=== PATIENT | female | born 1990 | race Caucasian/White ===

== ENCOUNTER 2017-09-27 20:43 | Emergency (ER) | payer OTHER, BC ==
[2017-09-27] MEDS ORDERED: TYLENOL EXTRA STRENGTH 500 MG PO STA (21:07)
--- NOTE | 2017-09-27 21:10 | ERPHSYRPT ---
- History of Present Illness Time Seen by Provider: 09/27/17 21:00 Source: patient Exam Limitations: no limitations Patient Subjective Stated Complaint: pt is alert and oriented. pt is ambulatory. pt is 9 weeks 5 days . pt is . pt states that at about 1930 she began bleeding bright red blood with no clots passing. pt states that she is also experiencing cramping. she states that she has been down a water slide today with her children and that she had sex today at about 1700. Triage Nursing Assessment: see above Physician History: 26 y/o female who is 9 weeks comes to the ER with complaints of vaginal bleeding and abdominal cramping that started this evening. Pt states that at 5 pm she had sexual intercourse. Pt states that she had bright red blood but no clots. Pt describes the pain as cramping, 6/10, constant, worse with walking and pt has not taken any pain meds. Pt also admits to pressure with urination. Timing/Duration: today Activites at Onset: physical activity Quality: cramping Onset Location: suprapubic Pain Radiation: none Severity of Pain-Max: moderate Severity of Pain-Current: moderate Prior abdominal problems: similar symptoms Sexual intercourse history: single partner Modifying Factors: Improves With: nothing Associated Symptoms: denies symptoms Allergies/Adverse Reactions: sulfamethoxazole [From Bactrim] Allergy (Severe, Verified 02/23/16 22:44) Shortness of Breath and hives trimethoprim [From Bactrim] Allergy (Severe, Verified 02/23/16 22:44) Shortness of Breath and hives adhesive Allergy (Mild, Verified 02/23/16 22:44) Rash latex Allergy (Unknown, Verified 02/23/16 22:44) Home Medications: Vits W-Ca,Fe,FA(<1Mg) [] 1 tab PO DAILY 02/23/16 [History] Hx Tetanus, Diphtheria Vaccination/Date Given: Yes Hx Influenza Vaccination/Date Given: No Hx Pneumococcal Vaccination/Date Given: No - Review of Systems Constitutional: No Fever, No Chills Eyes: No Symptoms Ears, Nose, & Throat: No Symptoms Respiratory: No Cough, No Dyspnea Cardiac: No Chest Pain, No Edema, No Syncope Abdominal/Gastrointestinal: Abdominal Pain, No Nausea, No Vomiting, No Diarrhea Genitourinary Symptoms: Vaginal Bleeding, No Dysuria Musculoskeletal: No Back Pain, No Neck Pain Skin: No Rash Neurological: No Dizziness, No Focal Weakness, No Sensory Changes Psychological: No Symptoms Endocrine: No Symptoms All Other Systems: Reviewed and Negative - Past Medical History Pertinent Past Medical History: Yes Neurological History: No Pertinent History ENT History: No Pertinent History Cardiac History: No Pertinent History Respiratory History: Asthma Endocrine Medical History: No Pertinent History Musculoskeletal History: No Pertinent History GI Medical History: No Pertinent History History: No Pertinent History Psycho-Social History: Anxiety Female Reproductive Disorders: No Pertinent History Other Medical History: CHLAMYDIA IN THE PAST ET TRICHOMONIS. INDIGESTION - Past Surgical History Past Surgical History: Yes Neuro Surgical History: No Pertinent History Cardiac: No Pertinent History Respiratory: No Pertinent History Gastrointestinal: No Pertinent History Genitourinary: No Pertinent History Musculoskeletal: No Pertinent History Female Surgical History: No Pertinent History Other Surgical History: wisdom teeth removed, abd abcess - Social History Smoking Status: Former smoker How long have you smoked: 4 -5 years Exposure to second hand smoke: No Drug Use: none Patient Lives Alone: No Significant Family History: no pertinent family hx - Female History Hx Now: Yes Expected Date of Delivery: 04/27/18 - Nursing Vital Signs Nursing Vital Signs: Initial Vital Signs Temperature 97.6 F 09/27/17 20:44 Pulse Rate 95 H 09/27/17 20:44 Respiratory Rate 16 09/27/17 20:44 Blood Pressure 124/82 09/27/17 20:44 O2 Sat by Pulse Oximetry 99 09/27/17 20:44 Pain Scale Pain Intensity 3 - Physical Exam General Appearance: no apparent distress, alert Eye Exam: PERRL/EOMI, eyes nml inspection Ears, Nose, Throat Exam: normal ENT inspection, TMs normal, pharynx normal, moist mucous membranes Neck Exam: normal inspection, non-tender, supple, full range of motion Respiratory Exam: normal breath sounds, lungs clear, No respiratory distress Cardiovascular Exam: regular rate/rhythm, normal heart sounds, normal peripheral pulses Gastrointestinal/Abdomen Exam: soft, normal bowel sounds, distention, No tenderness, No mass Back Exam: normal inspection, normal range of motion, No CVA tenderness, No vertebral tenderness Extremity Exam: normal inspection, normal range of motion, pelvis stable Neurologic Exam: alert, oriented x 3, cooperative, nremt II-XII nml as tested, normal mood/affect, sensation nml, No motor deficits Skin Exam: normal color, warm, dry Lymphatic Exam: No adenopathy SpO2: 99 Oxygen Delivery: Room Air - Course Nursing assessment & vital signs reviewed: Yes Ordered Tests: Active Orders 24 hr Category Date Time Status OB <14 WKS 1ST GESTATION [US] Stat Exams 09/27/17 21:06 Ordered CBC W DIFF Stat Lab 09/27/17 21:05 Completed CMP Stat Lab 09/27/17 21:05 Completed CULTURE,URINE Stat Lab 09/27/17 22:25 Received HCG, Quantitative (Inhouse) Stat Lab 09/27/17 21:30 Completed UA W/ MICROSCOPIC Stat Lab 09/27/17 22:25 Completed Medication Summary Discontinued Medications Generic Name Dose Route Start Last Admin Trade Name Brandy PRN Reason Stop Dose Admin Acetaminophen 1,000 mg 09/27/17 21:07 09/27/17 21:11 Tylenol Extra Strength 500 Mg PO 09/27/17 21:08 1,000 mg STAT STA Administration Acetaminophen Confirm 09/27/17 21:11 Tylenol Extra Strength 500 Mg Administered 09/27/17 21:12 Dose 1,000 mg .ROUTE .[employer] Lab/Rad Data: Laboratory Result Diagrams 09/27/17 21:05 09/27/17 21:05 Laboratory Results 09/27/17 09/27/17 09/27/17 Range/Units 22:25 21:30 21:05 WBC (4.0-10.5) K/mm3 RBC (4.1-5.4) M/mm3 Hgb (12.0-16.0) gm/dl Hct (35-47) % MCV (78-100) fl MCH (26-32) pg MCHC (32-36) g/dl RDW (11.5-14.0) % Plt Count (150-450) K/mm3 MPV (6-9.5) fl Gran % (36.0-66.0) % Eos # (Auto) (0-0.5) Absolute Lymphs (auto) (1.0-4.6) Absolute Monos (auto) (0.0-1.3) Lymphocytes % (24.0-44.0) % Monocytes % (0.0-12.0) % Eosinophils % (0.00-5.0) % Basophils % (0.0-0.4) % Absolute Granulocytes (1.4-6.9) Basophils # (0-0.4) Sodium 137 (137-145) mmol/L Potassium 3.5 (3.5-5.1) mmol/L Chloride 103 (98-107) mmol/L Carbon Dioxide 25 (22-30) mmol/L Anion Gap 12.7 (5-15) MEQ/L BUN 9 (7-17) mg/dL Creatinine 0.64 (0.52-1.04) mg/dL Estimated GFR > 60.0 ML/MIN Glucose 91 (74-106) mg/dL Calcium 9.1 (8.4-10.2) mg/dL Total Bilirubin 0.30 (0.2-1.3) mg/dL AST 14 (14-36) U/L ALT 11 (0-35) U/L Alkaline Phosphatase 65 (38-126) U/L Serum Total Protein 6.5 (6.3-8.2) g/dL Albumin 3.9 (3.5-5.0) g/dL Beta HCG, Quant 71070 mIU/ml Ur Collection Type VOID Urine Color RED (YELLOW) Urine Appearance CLOUDY (CLEAR) Urine pH 8.0 (5-6) Ur Specific [place] 1.005 (1.005-1.025) Urine Protein 30 (Negative) Urine Ketones NEGATIVE (NEGATIVE) Urine Blood 250 (0-5) Vahe/ul Urine Nitrite NEGATIVE (NEGATIVE) Urine Bilirubin NEGATIVE (NEGATIVE) Urine Urobilinogen NORMAL (0-1) mg/dL Ur Leukocyte Esterase TRACE (NEGATIVE) Urine Microscopic RBC >100 (0-2) /HPF Urine Culture Reflexed YES (NO) Urine Glucose NEGATIVE (NEGATIVE) mg/dL Specimen Received 6 09/2709/27/17 Range/Units 21:05 WBC 9.3 (4.0-10.5) K/mm3 RBC 4.51 (4.1-5.4) M/mm3 Hgb 13.3 (12.0-16.0) gm/dl Hct 38.3 (35-47) % MCV 84.9 (78-100) fl MCH 29.5 (26-32) pg MCHC 34.7 (32-36) g/dl RDW 12.8 (11.5-14.0) % Plt Count 281 (150-450) K/mm3 MPV 10.8 H (6-9.5) fl Gran % 57.5 (36.0-66.0) % Eos # (Auto) 0.26 (0-0.5) Absolute Lymphs (auto) 2.82 (1.0-4.6) Absolute Monos (auto) 0.84 (0.0-1.3) Lymphocytes % 30.4 (24.0-44.0) % Monocytes % 9.1 (0.0-12.0) % Eosinophils % 2.8 (0.00-5.0) % Basophils % 0.2 (0.0-0.4) % Absolute Granulocytes 5.34 (1.4-6.9) Basophils # 0.02 (0-0.4) Sodium (137-145) mmol/L Potassium (3.5-5.1) mmol/L Chloride (98-107) mmol/L Carbon Dioxide (22-30) mmol/L Anion Gap (5-15) MEQ/L BUN (7-17) mg/dL Creatinine (0.52-1.04) mg/dL Estimated GFR ML/MIN Glucose (74-106) mg/dL Calcium (8.4-10.2) mg/dL Total Bilirubin (0.2-1.3) mg/dL AST (14-36) U/L ALT (0-35) U/L Alkaline Phosphatase (38-126) U/L Serum Total Protein (6.3-8.2) g/dL Albumin (3.5-5.0) g/dL Beta HCG, Quant mIU/ml Ur Collection Type Urine Color (YELLOW) Urine Appearance (CLEAR) Urine pH (5-6) Ur Specific [place] (1.005-1.025) Urine Protein (Negative) Urine Ketones (NEGATIVE) Urine Blood (0-5) Vahe/ul Urine Nitrite (NEGATIVE) Urine Bilirubin (NEGATIVE) Urine Urobilinogen (0-1) mg/dL Ur Leukocyte Esterase (NEGATIVE) Urine Microscopic RBC (0-2) /HPF Urine Culture Reflexed (NO) Urine Glucose (NEGATIVE) mg/dL Specimen Received - Progress Progress: improved Progress Note: 09/27/17 23:51 The OB ultrasound shows a subchorionic hemorrhage. The fetus has a FHR in the 160's. The rest of the labs are within normal limits. Pt was advised to start pelvic rest and will F/U with Dr Johnson on Saturday. - Departure Time of Disposition: 23:52 Departure Disposition: Home Clinical Impression: Subchorionic hemorrhage Qualifiers: Fetus number: single or unspecified fetus Trimester: first trimester Qualified Code(s): O41.8X10 - Other specified disorders of amniotic fluid and membranes, first trimester, not applicable or unspecified; O46.8X1 - Other antepartum hemorrhage, first trimester Condition: Stable Critical Care Time: No Referrals: RANI JOHNSON MD [Primary Care Provider] - Instructions: Bleeding With (DC) Additional Instructions: No sexual intercourse until you talk with your OB doctor. Follow up with Dr Johnson on Saturday.
[2017-09-27] MEDS ORDERED: TYLENOL EXTRA STRENGTH 500 MG ONE (21:11)
[2017-09-27 21:49] LABS: ALBUMIN 3.9 g/dL (3.5-5.0); ALKALINE PHOSPHATASE 65 U/L (38-126); ANION GAP 12.7 MEQ/L (5-15); BLOOD UREA NITROGEN 9 mg/dL (7-17); CHLORIDE 103 mmol/L (98-107); Calcium 9.1 mg/dL (8.4-10.2); Carbon Dioxide 25 mmol/L (22-30); Creatinine 1 0.64 mg/dL (0.52-1.04); Glucose 91 mg/dL (74-106); Potassium 3.5 mmol/L (3.5-5.1); SGOT/AST 14 U/L (14-36); SGPT/ALT 11 U/L (0-35); SODIUM 137 mmol/L (137-145); Total Protein 6.5 g/dL (6.3-8.2)
[2017-09-27 21:57] LABS: BASOPHIL % 0.2 % (0.0-0.4); Basophil (Absolute #) 0.02 (0-0.4); Eosinophil % 2.8 % (0.00-5.0); Eosinophil (Absolute #) 0.26 (0-0.5); Granulocyte Absolute (ANC) 5.34 (1.4-6.9); Granulocytes % 57.5 % (36.0-66.0); Hematocrit 38.3 % (35-47); Hemoglobin 13.3 gm/dl (12.0-16.0); Lymphocyte (Absolute #) 2.82 (1.0-4.6); Lymphocytes % 30.4 % (24.0-44.0); Mean Cell Volume 84.9 fl (78-100); Mean Corpuscular Hemoglobin 29.5 pg (26-32); Mean Corpuscular Hgb Concent. 34.7 g/dl (32-36); Mean Platelet Volume 10.8 fl (6-9.5); Monocyte (Absolute #) 0.84 (0.0-1.3); Monocytes % 9.1 % (0.0-12.0); Platelet Count 281 K/mm3 (150-450); Red Blood Count 4.51 M/mm3 (4.1-5.4); Red Cell Distribution Width 12.8 % (11.5-14.0); White Blood Count 9.3 K/mm3 (4.0-10.5)
[2017-09-27 22:40] LABS: Appearance CLOUDY (CLEAR)
[2017-09-27 22:41] LABS: Bilirubin NEGATIVE (NEGATIVE); Blood 250 Ery/ul (0-5); Glucose NEGATIVE (NEGATIVE); Ketones NEGATIVE (NEGATIVE); Leukocyte Esterase TRACE (NEGATIVE); Nitrite NEGATIVE (NEGATIVE); Protein,Urine Dip 30 (Negative); Specific Gravity 1.005 (1.005-1.025); Urobilinogen NORMAL mg/dL (0-1)
[2017-09-27 22:44] LABS: RBC >100 /HPF (0-2)
[2017-09-27 23:54] VITALS: O2SAT 99
[2017-09-28 00:14] VITALS: BP 115/70; PULSE 76
--- NOTE | 2017-09-28 07:42 | XRAY ---
Indication: Bleeding and cramping. Two-dimensional transabdominal early OB ultrasound performed. Comparison: September 17, 2017. Again there is a single intrauterine gestational sac with presence of a single pole. Mean crown-rump length today measures 2.87 cm corresponding to 9 weeks 5 days. heart rate 178 BPM. There are now 2 foci of echogenic subchorionic hemorrhage/clots posterior and inferiorly, largest measuring 2.7 x 2.7 cm. Cervix is closed. Cervical length measures 2.8 cm. Left and right ovaries sonographically unremarkable. No suspicious adnexal mass. Small cul-de-sac free fluid. Impression: Again single viable intrauterine measuring 9 weeks 5 days. Normal progression of . New subchorionic hemorrhage/clots. Comment: Preliminary report was given.
== END 2017-09-28 00:16 | disposition home or self-care (01) ==
LOC: ED 20:43
DX: O46.8X1 Other antepartum hemorrhage, first trimester (principal); Z3A.09 9 weeks gestation of pregnancy
CPT/HCPCS: 36415; 76801; 76817; 80053; 81000; 84702; 85025; 87086; 99284; A9270-GY

== ENCOUNTER 2018-04-03 21:57 | Observation (INO) | payer OTHER, BC ==
[2018-04-03 22:38] VITALS: BP 134/82; PULSE 112
[2018-04-03 23:08] LABS: Amphetamine,Urine NEGATIVE (NEGATIVE); Barbiturate,Urine NEGATIVE (NEGATIVE); Benzodiazepine,Urine NEGATIVE (NEGATIVE); Cocaine,Urine NEGATIVE (NEGATIVE); Methadone,Urine NEGATIVE (NEGATIVE); Opiate,Urine NEGATIVE (NEGATIVE); PCP,Urine NEGATIVE (NEGATIVE); THC,Urine NEGATIVE (NEGATIVE)
== END 2018-04-03 23:47 | disposition home or self-care (01) ==
LOC: OB 21:57
PROVIDERS: ADMIT Family Medicine; ATTEND Family Medicine
DX: Z34.83 Encounter for supervision of other normal pregnancy, third trimester (principal)
CPT/HCPCS: 80307; 83986; G0378

== ENCOUNTER 2018-04-16 05:12 | Inpatient (IN) | payer OTHER, BC ==
[~2018-04-16 05:12] MED LIST: BRETHINE 1 MG/ML SQ PRN; PITOCIN 30 UNITS/ LR 500 ML 500 ML IV SCH; TYLENOL EXTRA STRENGTH 500 MG PO PRN; XYLOCAINE 1% HCL 20 ML MDV IJ PRN
[2018-04-16] MEDS: Lactated Ringers 1,000 ML IV SCH ×2 (06:15→12:08)
[2018-04-16 06:45] LABS: BASOPHIL % 0.1 % (0.0-0.4); Basophil (Absolute #) 0.01 (0-0.4); Eosinophil % 1.6 % (0.00-5.0); Eosinophil (Absolute #) 0.16 (0-0.5); Granulocyte Absolute (ANC) 6.64 (1.4-6.9); Granulocytes % 66.4 % (36.0-66.0); Hemoglobin 11.9 gm/dl (12.0-16.0); Mean Cell Volume 87.8 fl (78-100); Mean Corpuscular Hgb Concent. 33.1 g/dl (32-36); Mean Platelet Volume 10.2 fl (6-9.5); Monocyte (Absolute #) 0.99 (0.0-1.3); Monocytes % 9.9 % (0.0-12.0); Platelet Count 272 K/mm3 (150-450); Red Cell Distribution Width 13.3 % (11.5-14.0)
[2018-04-16 07:39] LABS: Amphetamine,Urine NEGATIVE (NEGATIVE); Barbiturate,Urine NEGATIVE (NEGATIVE); Benzodiazepine,Urine NEGATIVE (NEGATIVE); Cocaine,Urine NEGATIVE (NEGATIVE); Methadone,Urine NEGATIVE (NEGATIVE); Opiate,Urine NEGATIVE (NEGATIVE); PCP,Urine NEGATIVE (NEGATIVE); THC,Urine NEGATIVE (NEGATIVE)
[2018-04-16] MEDS ORDERED: OB EPIDURAL NAROPIN/SUFENTANIL IN NACL EPIDURAL PRN (09:15)
[2018-04-16] MEDS ORDERED: Lactated Ringers 1,000 ML IV ONE (09:15)
[2018-04-16] MEDS ORDERED: Ephedrine Sulfate 50 MG/ML IV PRN (10:14)
[2018-04-16 10:38] VITALS: O2SAT 99
[2018-04-16] MEDS ORDERED: Anucort-HC SUPPOSITORY PR PRN (15:43)
[2018-04-16] MEDS ORDERED: LANSINOH 40 GM TOP PRN (15:43)
[2018-04-16] MEDS ORDERED: Dermoplast Spray TP PRN (15:43)
[2018-04-16] MEDS ORDERED: TUCKS TP PRN (15:43)
[2018-04-16] MEDS ORDERED: Mylicon 80MG PO PRN (15:43)
[2018-04-16] MEDS ORDERED: CORTISONE 1% CREAM TP PRN (15:43)
[2018-04-16] MEDS ORDERED: Ambien 10 MG PO PRN (15:43)
[2018-04-16] MEDS ORDERED: Dulcolax 10 MG SUPP PR PRN (15:43)
[2018-04-16] MEDS: MOTRIN 400 MG PO PRN (18:33)
[2018-04-16] MEDS: Colace 100 MG PO SCH (23:00)
[2018-04-17] MEDS: NORCO 5/325 MG PO PRN ×2 (00:15→18:32)
[2018-04-17] MEDS: MOTRIN 400 MG PO PRN ×3 (05:20→23:35)
[2018-04-17 05:30] LABS: BASOPHIL % 0.2 % (0.0-0.4); Basophil (Absolute #) 0.02 (0-0.4); Eosinophil % 1.5 % (0.00-5.0); Granulocyte Absolute (ANC) 8.95 (1.4-6.9); Granulocytes % 67.3 % (36.0-66.0); Hematocrit 34.3 % (35-47); Lymphocyte (Absolute #) 2.86 (1.0-4.6); Lymphocytes % 21.5 % (24.0-44.0); Mean Cell Volume 89.1 fl (78-100); Mean Corpuscular Hgb Concent. 32.1 g/dl (32-36); Monocyte (Absolute #) 1.26 (0.0-1.3); Monocytes % 9.5 % (0.0-12.0); Platelet Count 240 K/mm3 (150-450); Red Blood Count 3.85 M/mm3 (4.1-5.4); Red Cell Distribution Width 13.3 % (11.5-14.0); White Blood Count 13.3 K/mm3 (4.0-10.5)
[2018-04-17 05:41] LABS: Mean Corpuscular Hemoglobin 28.5 pg (26-32)
[2018-04-17] MEDS: Colace 100 MG PO SCH ×2 (09:10→22:30)
[2018-04-17] MEDS: FERREX 150 PO SCH (09:10)
[2018-04-18 01:58] VITALS: BP 128/77
[2018-04-18] MEDS: NORCO 5/325 MG PO PRN (04:53)
--- NOTE | 2018-04-18 08:00 | PCM.DS ---
Discharge Summary Date of Admission: 04/16/18 08:41 Admitting Physician: RANI JOHNSON Primary Care Provider: RANI JOHNSON Allergies Allergies sulfamethoxazole [From Bactrim] Allergy (Severe, Verified 04/16/18 06:48) Shortness of Breath and hives trimethoprim [From Bactrim] Allergy (Severe, Verified 04/16/18 06:48) Shortness of Breath and hives adhesive Allergy (Mild, Verified 04/16/18 06:48) Rash latex Allergy (Unknown, Verified 04/16/18 06:48) Hospital Summary - Hospital Course Hospital Course: patient induced electively at 39 wks, had with right labial laceration repair. , pain controlled, mild lochia. doing great - Vitals & Intake/Output Vital Signs: Vital Signs Temperature 97.6 F 04/18/18 01:00 Pulse Rate 77 04/18/18 01:00 Respiratory Rate 20 04/18/18 01:00 Blood Pressure 128/77 04/18/18 01:00 O2 Sat by Pulse Oximetry 99 04/16/18 10:45 Intake & Output: Intake & Output 04/15/18 04/16/18 04/17/18 04/18/18 11:59 11:59 11:59 11:59 Intake Total 2000 7300 Output Total 1000 1600 Balance 1000 5700 Weight 102.965 kg - Lab Result Diagrams: 04/17/18 05:02 Discharge Exam General Appearance: no apparent distress Neurologic Exam: alert, oriented x 3 Skin Exam: normal color, warm, dry Respiratory Exam: normal breath sounds, lungs clear, No respiratory distress Cardiovascular Exam: regular rate/rhythm, normal heart sounds Gastrointestinal/Abdomen Exam: soft, No tenderness, No mass Extremity Exam: normal inspection, normal range of motion Final Diagnosis/Problem List - Final Discharge Diagnosis/Problem (1) Vaginal delivery Current Visit: Yes Status: Acute (2) (infant) Current Visit: Yes Status: Acute (3) Perineal laceration involving labia Current Visit: Yes Status: Acute - Discharge Disposition: Home, Self-Care Condition: Stable Prescriptions: New Hydrocodone/APAP 5-325 Tab^^^ [[place] 5-325 Tablet^^^] 1 tab PO Q6HPRN PRN # 15 tablet MDD 6 PRN Reason: Pain Continue Vits W-Ca,Fe,FA(<1Mg) [] 1 tab PO DAILY Follow up with: RANI JOHNSON MD [Primary Care Provider] - 1 Week
[2018-04-18 08:21] VITALS: PULSE 87
[2018-04-18] MEDS: FERREX 150 PO SCH (08:28)
[2018-04-18] MEDS: MOTRIN 400 MG PO PRN (08:28)
[2018-04-18] MEDS: Colace 100 MG PO SCH (08:28)
== END 2018-04-18 09:40 | disposition home or self-care (01) | DRG 807 ==
LOC: OB 05:12 → OBSVTOIN 08:41
PROVIDERS: ADMIT Family Medicine; ATTEND Family Medicine
PROC: 0HQ9XZZ Repair Perineum Skin, External Approach (ICD-10-PCS; principal; 2018-04-16)
PROC: 10E0XZZ Delivery of Products of Conception, External Approach (ICD-10-PCS; 2018-04-16)
DX: O70.0 First degree perineal laceration during delivery (principal); Z37.0 Single live birth; Z3A.39 39 weeks gestation of pregnancy
CPT/HCPCS: 36415; 80307; 85025; G0378; J2590; J2795; A9270-GY

== ENCOUNTER 2019-12-04 22:53 | Emergency (ER) | payer BC ==
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
[2019-12-04] MEDS ORDERED: solu-CORTEF 100MG IV ONE (23:18)
[2019-12-04 23:29] LABS: Hematocrit 34.8 % (35-47); Mean Cell Volume 83.7 fl (78-100); Mean Corpuscular Hemoglobin 26.4 pg (26-32); Mean Corpuscular Hgb Concent. 31.6 g/dl (32-36); Mean Platelet Volume 9.9 fl (7.5-11.0); Platelet Count 223 K/mm3 (150-450); Red Blood Count 4.16 M/mm3 (4.1-5.4); Red Cell Distribution Width 14.1 % (11.5-14.0); White Blood Count 9.5 K/mm3 (4.0-10.5)
[2019-12-04] MEDS ORDERED: solu-CORTEF 100MG ONE (23:29)
[2019-12-04 23:40] LABS: ALBUMIN 3.1 g/dL (3.5-5.0); ALKALINE PHOSPHATASE 151 U/L (38-126); ANION GAP 12.2 MEQ/L (5-15); BLOOD UREA NITROGEN 4 mg/dL (7-17); CHLORIDE 106 mmol/L (98-107); Calcium 8.1 mg/dL (8.4-10.2); Carbon Dioxide 19 mmol/L (22-30); Creatinine 1 0.59 mg/dL (0.52-1.04); EST GLOMERULAR FILTRATION RATE > 60.0 ML/MIN; Glucose 108 mg/dL (74-106); Potassium 3.5 mmol/L (3.5-5.1); SGOT/AST 26 U/L (14-36); SGPT/ALT 13 U/L (0-35); SODIUM 134 mmol/L (137-145); Total Protein 6.5 g/dL (6.3-8.2)
[2019-12-05 00:11] VITALS: O2SAT 97
[2019-12-05 00:17] LABS: Eosinophil 1 % (0.00-3.0); Lymphocytes 12 % (24-44); Monocyte 5 % (0.0-12.0); Neutrophils 82 % (36.0-66.0); Platelet Estimate NORMAL (NORMAL); Total Cells Counted 100
[2019-12-05 01:12] VITALS: BP 122/79; PULSE 113
--- NOTE | 2019-12-05 07:49 | XRAY ---
Indication: Short of breath. Comparison: April 04, 2011. Portable chest demonstrates new patchy bilateral airspace disease without consolidation/large effusion. Remaining heart and bony thorax normal. Comment: Preliminary interpretation was made by [facility]. No critical discrepancy.
== END 2019-12-05 01:12 | disposition home or self-care (01) ==
LOC: ED 22:53
DX: Z3A.38 38 weeks gestation of pregnancy (principal)
CPT/HCPCS: 36000; 36415; 71045; 80053; 83605; 85025; 93041; 94760; 96374; 99284; J1720

== ENCOUNTER 2019-12-07 08:50 | Inpatient (IN) | payer BC ==
[2019-12-07 09:40] LABS: Amphetamine,Urine NEGATIVE (NEGATIVE); Barbiturate,Urine NEGATIVE (NEGATIVE); Benzodiazepine,Urine NEGATIVE (NEGATIVE); Cocaine,Urine NEGATIVE (NEGATIVE); Methadone,Urine NEGATIVE (NEGATIVE); Opiate,Urine NEGATIVE (NEGATIVE); PCP,Urine NEGATIVE (NEGATIVE); THC,Urine NEGATIVE (NEGATIVE)
[2019-12-07] MEDS ORDERED: XYLOCAINE 1% HCL 20 ML MDV IJ PRN (10:06)
[2019-12-07] MEDS ORDERED: Ephedrine Sulfate 50 MG/ML IV PRN (10:12)
[2019-12-07] MEDS ORDERED: Lactated Ringers 1,000 ML IV ONE (10:12)
[2019-12-07] MEDS ORDERED: OB EPIDURAL NAROPIN/SUFENTANIL IN NACL EPIDURAL PRN (10:12)
[2019-12-07] MEDS ORDERED: PITOCIN 30 UNITS/ LR 500 ML 30 UNITS/500 ML IV.SOLN. IV SCH (10:30)
[2019-12-07] MEDS ORDERED: Lactated Ringers 1,000 ML IV SCH (10:30)
[2019-12-07 10:52] LABS: Hematocrit 33.7 % (35-47); Hemoglobin 10.7 gm/dl (12.0-16.0); Mean Cell Volume 83.4 fl (78-100); Mean Corpuscular Hemoglobin 26.5 pg (26-32); Mean Corpuscular Hgb Concent. 31.8 g/dl (32-36); Mean Platelet Volume 9.6 fl (7.5-11.0); Platelet Count 339 K/mm3 (150-450); Red Blood Count 4.04 M/mm3 (4.1-5.4); Red Cell Distribution Width 13.8 % (11.5-14.0); White Blood Count 6.1 K/mm3 (4.0-10.5)
[2019-12-07 14:46] LABS: Eosinophil 1 % (0.00-3.0); Lymphocytes 22 % (24-44); Monocyte 9 % (0.0-12.0); Neutrophils 68 % (36.0-66.0); Platelet Estimate NORMAL (NORMAL); Total Cells Counted 100
[2019-12-07] MEDS ORDERED: Dermoplast Spray TP PRN (15:28)
[2019-12-07] MEDS ORDERED: Mylicon 80MG PO PRN (15:28)
[2019-12-07] MEDS ORDERED: LANSINOH 40 GM TOP PRN (15:28)
[2019-12-07] MEDS ORDERED: TUCKS TP PRN (15:28)
[2019-12-07] MEDS ORDERED: Anucort-HC SUPPOSITORY PR PRN (15:28)
[2019-12-07] MEDS ORDERED: CORTISONE 1% CREAM TP PRN (15:28)
[2019-12-07] MEDS: MOTRIN 400 MG PO PRN (19:05)
[2019-12-07] MEDS: TYLENOL EXTRA STRENGTH 500 MG PO PRN (21:35)
[2019-12-07] MEDS: Colace 100 MG PO SCH (21:35)
[2019-12-08] MEDS: MOTRIN 400 MG PO PRN ×3 (02:07→17:44)
[2019-12-08 03:39] VITALS: O2SAT 99
[2019-12-08 05:11] LABS: Hematocrit 29.2 % (35-47); Hemoglobin 9.3 gm/dl (12.0-16.0); Mean Cell Volume 84.4 fl (78-100); Mean Corpuscular Hemoglobin 26.9 pg (26-32); Mean Corpuscular Hgb Concent. 31.8 g/dl (32-36); Mean Platelet Volume 9.9 fl (7.5-11.0); Platelet Count 355 K/mm3 (150-450); Red Blood Count 3.46 M/mm3 (4.1-5.4); Red Cell Distribution Width 13.5 % (11.5-14.0); White Blood Count 7.6 K/mm3 (4.0-10.5)
[2019-12-08 05:47] LABS: Lymphocytes 20 % (24-44); Monocyte 8 % (0.0-12.0); Neutrophils 72 % (36.0-66.0); Total Cells Counted 100
[2019-12-08 05:48] LABS: Platelet Estimate NORMAL (NORMAL); Polychromasia 1+
[2019-12-08] MEDS: TYLENOL EXTRA STRENGTH 500 MG PO PRN ×2 (07:08→21:39)
--- NOTE | 2019-12-08 08:00 | PCM.NOTE ---
Date and Time: 12/08/19 0759 Subjective Assessment: ppd 1 sp pt resting in bed and doing well vss afebrile abd; soft uterus; firm lochia; mils a/p sp ppd 1 dc home tomorrow fu office 6 wks OBJECTIVE DATA Vital Signs: Vital Signs - 24 hr Temp Pulse Resp BP BP Pulse Ox 12/08/19 02:00 97.6 F 77 18 127/72 99 12/07/19 20:00 98.0 F 99 H 20 117/73 96 12/07/19 18:15 83 18 107/58 12/07/19 16:42 81 18 108/66 12/07/19 15:42 81 18 107/65 12/07/19 15:30 100 H 18 110/55 12/07/19 15:00 18 12/07/19 14:45 18 12/07/19 14:30 101 H 18 115/82 12/07/19 14:00 101 H 18 129/76 12/07/19 13:00 125 H 18 102/65 12/07/19 12:05 85 18 124/80 12/07/19 11:30 100 H 18 121/75 12/07/19 11:05 18 12/07/19 10:05 18 12/07/19 09:15 100 H 18 113/69 12/07/19 08:50 98.0 F 100 H 20 113/69 Pain Assessment - Last Documented Pain Intensity 5 Pain Scale Used 0-10 Pain Scale Intake and Output: Intake & Output 12/05/19 12/06/19 12/07/19 12/08/19 11:59 11:59 11:59 11:59 Intake Total 950 Balance 950 Weight 100.244 kg Lab Results: Lab Results-Last 24 Hours 12/07/19 12/07/19 12/07/19 Range/Units 08:59 09:09 10:40 WBC 6.1 (4.0-10.5) K/mm3 RBC 4.04 L (4.1-5.4) M/mm3 Hgb 10.7 L (12.0-16.0) gm/dl Hct 33.7 L (35-47) % MCV 83.4 (78-100) fl MCH 26.5 (26-32) pg MCHC 31.8 L (32-36) g/dl RDW 13.8 (11.5-14.0) % Plt Count 339 (150-450) K/mm3 MPV 9.6 (7.5-11.0) fl Segmented Neutrophils 68 H (36.0-66.0) % Lymphocytes (Manual) 22 L (24-44) % Monocytes (Manual) 9 (0.0-12.0) % Eosinophils (Manual) 1 (0.00-3.0) % Platelet Estimate NORMAL (NORMAL) RBC Morphology NORMAL Polychromasia POC Amnio Swab Test Positive Urine Opiates Level NEGATIVE (NEGATIVE) Ur Methadone NEGATIVE (NEGATIVE) Urine Barbiturates NEGATIVE (NEGATIVE) Ur Phencyclidine (PCP) NEGATIVE (NEGATIVE) Urine Amphetamine NEGATIVE (NEGATIVE) U Benzodiazepine Level NEGATIVE (NEGATIVE) Urine Cocaine NEGATIVE (NEGATIVE) Urine Marijuana (THC) NEGATIVE (NEGATIVE) 12/08/19 Range/Units 04:15 WBC 7.6 (4.0-10.5) K/mm3 RBC 3.46 L (4.1-5.4) M/mm3 Hgb 9.3 L (12.0-16.0) gm/dl Hct 29.2 L (35-47) % MCV 84.4 (78-100) fl MCH 26.9 (26-32) pg MCHC 31.8 L (32-36) g/dl RDW 13.5 (11.5-14.0) % Plt Count 355 (150-450) K/mm3 MPV 9.9 (7.5-11.0) fl Segmented Neutrophils 72 H (36.0-66.0) % Lymphocytes (Manual) 20 L (24-44) % Monocytes (Manual) 8 (0.0-12.0) % Eosinophils (Manual) (0.00-3.0) % Platelet Estimate NORMAL (NORMAL) RBC Morphology ABNORMAL Polychromasia 1+ POC Amnio Swab Test Urine Opiates Level (NEGATIVE) Ur Methadone (NEGATIVE) Urine Barbiturates (NEGATIVE) Ur Phencyclidine (PCP) (NEGATIVE) Urine Amphetamine (NEGATIVE) U Benzodiazepine Level (NEGATIVE) Urine Cocaine (NEGATIVE) Urine Marijuana (THC) (NEGATIVE) Multi-Disciplinary Progress Notes: Multi-Disciplinary Progress Notes 12/07/19 15:51 Respiratory Note by Halie Schrader Rt on standy-by. DeLee suctioned per nursing request due to audible rhonchi. No other interventions required. Initialized on 12/07/19 15:51 - END OF NOTE
--- NOTE | 2019-12-08 08:01 | PCM.DCORD ---
- Discharge Discharge Date: 12/09/19 Condition: Stable Prescriptions: No Action Albuterol Sulfate [Albuterol Sulfate Hfa] 8.5 gm IH Q4H PRN PRN PRN Reason: Shortness Of Breath Cephalexin Mh 500 mg [Keflex 500 mg] 500 mg PO TID #21 capsule Prednisone 5 mg [Deltasone 5 mg] 5 mg PO BID Follow up with: KINGSLEY MALIK [Primary Care Provider] - 1 Week
--- NOTE | 2019-12-08 08:05 | PCM.DS ---
Discharge Summary Date of Admission: 12/07/19 08:50 Date of Discharge: 12/09/19 Admitting Physician: CHARLIE CUEVAS DO Primary Care Provider: KINGSLEY MALIK Allergies Allergies sulfamethoxazole [From Bactrim] Allergy (Severe, Verified 12/07/19 09:19) Shortness of Breath and hives trimethoprim [From Bactrim] Allergy (Severe, Verified 12/07/19 09:19) Shortness of Breath and hives adhesive Allergy (Mild, Verified 12/07/19 09:19) Rash latex Allergy (Unknown, Verified 12/07/19 09:19) Hospital Summary - Hospital Course Hospital Course: pt admitted on dec 06 for being in labor at 38 4/7 wks gestation and delivered live baby girl without complication. during the period pt did well and now stable for dishcarge on dec 08. pt had stable hgb at 9. pt instructed to fu in office in 6 wks. all questions answered to her satisfaction. - Vitals & Intake/Output Vital Signs: Vital Signs Temperature 97.6 F 12/08/19 02:00 Pulse Rate 77 12/08/19 02:00 Respiratory Rate 18 12/08/19 02:00 Blood Pressure 127/72 12/08/19 02:00 O2 Sat by Pulse Oximetry 99 12/08/19 02:00 Intake & Output: Intake & Output 12/05/19 12/06/19 12/07/19 12/08/19 11:59 11:59 11:59 11:59 Intake Total 950 Balance 950 Weight 100.244 kg - Lab Result Diagrams: 12/08/19 04:15 Lab Results-Last 24 Hrs: Lab Results-Last 24 Hours 12/07/19 12/07/19 12/07/19 Range/Units 08:59 09:09 10:40 WBC 6.1 (4.0-10.5) K/mm3 RBC 4.04 L (4.1-5.4) M/mm3 Hgb 10.7 L (12.0-16.0) gm/dl Hct 33.7 L (35-47) % MCV 83.4 (78-100) fl MCH 26.5 (26-32) pg MCHC 31.8 L (32-36) g/dl RDW 13.8 (11.5-14.0) % Plt Count 339 (150-450) K/mm3 MPV 9.6 (7.5-11.0) fl Segmented Neutrophils 68 H (36.0-66.0) % Lymphocytes (Manual) 22 L (24-44) % Monocytes (Manual) 9 (0.0-12.0) % Eosinophils (Manual) 1 (0.00-3.0) % Platelet Estimate NORMAL (NORMAL) RBC Morphology NORMAL Polychromasia POC Amnio Swab Test Positive Urine Opiates Level NEGATIVE (NEGATIVE) Ur Methadone NEGATIVE (NEGATIVE) Urine Barbiturates NEGATIVE (NEGATIVE) Ur Phencyclidine (PCP) NEGATIVE (NEGATIVE) Urine Amphetamine NEGATIVE (NEGATIVE) U Benzodiazepine Level NEGATIVE (NEGATIVE) Urine Cocaine NEGATIVE (NEGATIVE) Urine Marijuana (THC) NEGATIVE (NEGATIVE) 12/08/19 Range/Units 04:15 WBC 7.6 (4.0-10.5) K/mm3 RBC 3.46 L (4.1-5.4) M/mm3 Hgb 9.3 L (12.0-16.0) gm/dl Hct 29.2 L (35-47) % MCV 84.4 (78-100) fl MCH 26.9 (26-32) pg MCHC 31.8 L (32-36) g/dl RDW 13.5 (11.5-14.0) % Plt Count 355 (150-450) K/mm3 MPV 9.9 (7.5-11.0) fl Segmented Neutrophils 72 H (36.0-66.0) % Lymphocytes (Manual) 20 L (24-44) % Monocytes (Manual) 8 (0.0-12.0) % Eosinophils (Manual) (0.00-3.0) % Platelet Estimate NORMAL (NORMAL) RBC Morphology ABNORMAL Polychromasia 1+ POC Amnio Swab Test Urine Opiates Level (NEGATIVE) Ur Methadone (NEGATIVE) Urine Barbiturates (NEGATIVE) Ur Phencyclidine (PCP) (NEGATIVE) Urine Amphetamine (NEGATIVE) U Benzodiazepine Level (NEGATIVE) Urine Cocaine (NEGATIVE) Urine Marijuana (THC) (NEGATIVE) - Procedures and Test Procedures and Tests throughout Hospitalization: Therapy Orders & Screens 12/07/19 15:50 Standby ROUTINE Comment: Diagnosis: labor - Discharge Disposition: Home, Self-Care Condition: Stable Prescriptions: No Action Albuterol Sulfate [Albuterol Sulfate Hfa] 8.5 gm IH Q4H PRN PRN PRN Reason: Shortness Of Breath Cephalexin Mh 500 mg [Keflex 500 mg] 500 mg PO TID #21 capsule Prednisone 5 mg [Deltasone 5 mg] 5 mg PO BID Follow up with: KINGSLEY MALIK [Primary Care Provider] - 1 Week
--- NOTE | 2019-12-08 08:06 | PCM.DS ---
Discharge Summary Date of Admission: 12/07/19 08:50 Date of Discharge: 12/09/19 Admitting Physician: CHARLIE CUEVAS DO Primary Care Provider: KINGSLEY MALIK Allergies Allergies sulfamethoxazole [From Bactrim] Allergy (Severe, Verified 12/07/19 09:19) Shortness of Breath and hives trimethoprim [From Bactrim] Allergy (Severe, Verified 12/07/19 09:19) Shortness of Breath and hives adhesive Allergy (Mild, Verified 12/07/19 09:19) Rash latex Allergy (Unknown, Verified 12/07/19 09:19) Hospital Summary - Vitals & Intake/Output Vital Signs: Vital Signs Temperature 97.6 F 12/08/19 02:00 Pulse Rate 77 12/08/19 02:00 Respiratory Rate 18 12/08/19 02:00 Blood Pressure 127/72 12/08/19 02:00 O2 Sat by Pulse Oximetry 99 12/08/19 02:00 Intake & Output: Intake & Output 12/05/19 12/06/19 12/07/19 12/08/19 11:59 11:59 11:59 11:59 Intake Total 950 Balance 950 Weight 100.244 kg - Lab Result Diagrams: 12/08/19 04:15 Lab Results-Last 24 Hrs: Lab Results-Last 24 Hours 12/07/19 12/07/19 12/07/19 Range/Units 08:59 09:09 10:40 WBC 6.1 (4.0-10.5) K/mm3 RBC 4.04 L (4.1-5.4) M/mm3 Hgb 10.7 L (12.0-16.0) gm/dl Hct 33.7 L (35-47) % MCV 83.4 (78-100) fl MCH 26.5 (26-32) pg MCHC 31.8 L (32-36) g/dl RDW 13.8 (11.5-14.0) % Plt Count 339 (150-450) K/mm3 MPV 9.6 (7.5-11.0) fl Segmented Neutrophils 68 H (36.0-66.0) % Lymphocytes (Manual) 22 L (24-44) % Monocytes (Manual) 9 (0.0-12.0) % Eosinophils (Manual) 1 (0.00-3.0) % Platelet Estimate NORMAL (NORMAL) RBC Morphology NORMAL Polychromasia POC Amnio Swab Test Positive Urine Opiates Level NEGATIVE (NEGATIVE) Ur Methadone NEGATIVE (NEGATIVE) Urine Barbiturates NEGATIVE (NEGATIVE) Ur Phencyclidine (PCP) NEGATIVE (NEGATIVE) Urine Amphetamine NEGATIVE (NEGATIVE) U Benzodiazepine Level NEGATIVE (NEGATIVE) Urine Cocaine NEGATIVE (NEGATIVE) Urine Marijuana (THC) NEGATIVE (NEGATIVE) 12/08/19 Range/Units 04:15 WBC 7.6 (4.0-10.5) K/mm3 RBC 3.46 L (4.1-5.4) M/mm3 Hgb 9.3 L (12.0-16.0) gm/dl Hct 29.2 L (35-47) % MCV 84.4 (78-100) fl MCH 26.9 (26-32) pg MCHC 31.8 L (32-36) g/dl RDW 13.5 (11.5-14.0) % Plt Count 355 (150-450) K/mm3 MPV 9.9 (7.5-11.0) fl Segmented Neutrophils 72 H (36.0-66.0) % Lymphocytes (Manual) 20 L (24-44) % Monocytes (Manual) 8 (0.0-12.0) % Eosinophils (Manual) (0.00-3.0) % Platelet Estimate NORMAL (NORMAL) RBC Morphology ABNORMAL Polychromasia 1+ POC Amnio Swab Test Urine Opiates Level (NEGATIVE) Ur Methadone (NEGATIVE) Urine Barbiturates (NEGATIVE) Ur Phencyclidine (PCP) (NEGATIVE) Urine Amphetamine (NEGATIVE) U Benzodiazepine Level (NEGATIVE) Urine Cocaine (NEGATIVE) Urine Marijuana (THC) (NEGATIVE) Micro Results-Entire Visit: Microbiology 12/07/19 17:40 Urine Culture - Preliminary Catherized NO GROWTH TO DATE - Procedures and Test Procedures and Tests throughout Hospitalization: Therapy Orders & Screens 12/07/19 15:50 Standby ROUTINE Comment: Diagnosis: labor - Discharge Disposition: Home, Self-Care Condition: Stable Prescriptions: No Action Albuterol Sulfate [Albuterol Sulfate Hfa] 8.5 gm IH Q4H PRN PRN PRN Reason: Shortness Of Breath Cephalexin Mh 500 mg [Keflex 500 mg] 500 mg PO TID #21 capsule Prednisone 5 mg [Deltasone 5 mg] 5 mg PO BID Follow up with: KINGSLEY MALIK [Primary Care Provider] - 1 Week
[2019-12-08] MEDS ORDERED: Ventolin Hfa MDI IH PRN (10:29)
[2019-12-08] MEDS ORDERED: VENTOLIN COMMON CANISTER IH PRN (10:30)
[2019-12-08] MEDS: Colace 100 MG PO SCH ×2 (11:13→21:39)
[2019-12-08] MEDS: FERREX 150 PO SCH (11:13)
[2019-12-08] MEDS: KEFLEX 500 MG PO SCH ×2 (17:18→21:41)
[2019-12-09] MEDS: MOTRIN 400 MG PO PRN ×2 (02:25→08:27)
[2019-12-09 09:22] VITALS: BP 113/77; PULSE 90
[2019-12-09] MEDS: FERREX 150 PO SCH (10:20)
[2019-12-09] MEDS: Colace 100 MG PO SCH (10:23)
[2019-12-09] MEDS: TYLENOL EXTRA STRENGTH 500 MG PO PRN (13:29)
[2019-12-09] MEDS: KEFLEX 500 MG PO SCH (17:41)
== END 2019-12-09 15:45 | disposition home or self-care (01) | DRG 807 ==
LOC: OBSVTOIN 08:50 → OB 08:50
PROVIDERS: ADMIT Obstetrics & Gynecology; ATTEND Obstetrics & Gynecology
PROC: 10E0XZZ Delivery of Products of Conception, External Approach (ICD-10-PCS; principal; 2019-12-07)
DX: O80 Encounter for full-term uncomplicated delivery (principal); Z37.0 Single live birth; Z3A.38 38 weeks gestation of pregnancy
CPT/HCPCS: 36415; 59400; 80307; 84112; 85025; 87086; 94799; G0378; J2590; J2795; A9270-GY